=== PATIENT | female | born 1955 | race Caucasian/White ===

== ENCOUNTER → 2022-12-05 10:34 | Outpatient (CLI) | payer BC, SELFPAY ==
--- NOTE | ~2022-12-05 | US_ITS ---
US right upper quadrant INDICATION: Abdomen pain PROCEDURE: Realtime right upper abdominal ultrasound. COMPARISON: No prior studies for comparison. FINDINGS: The pancreas is normal without focal mass or pancreatic ductal dilation. Liver echotexture is increased, consistent with fatty infiltration. There is normal directional flow in the portal ve in. Gallbladder is not visualized. Common bile duct measures 4 mm. No sonographic Germain's sign. IMPRESSION: 1: Gallbladder not visualized, possibly contracted versus surgically absent. Clinically correlate. 2: Hepatic steatosis. Reviewed, dictated and finalized at location A. IMPRESSION: 1: Gallbladder not visualized, possibly contracted versus surgically absent. Cl inically correlate. 2: Hepatic steatosis.
== END ==
PROVIDERS: Visit Provider Student in an Organized Health Care Education/Training Program
DX: R10.84 Generalized abdominal pain (principal); K76.0 Fatty (change of) liver, not elsewhere classified
CPT/HCPCS: 76705